=== PATIENT | female | born 1990 | race Caucasian/White ===

== ENCOUNTER 2018-02-08 21:28 | Inpatient (IN) ==
[~2018-02-08 21:28] MED LIST: *HR* Nalbuphine 10 MG/ML AMPUL IVP PRN; Famotidine 20 MG/2 ML VIAL IVP PRN; Metoclopramide 10 MG/2 ML VIAL IVP PRN; Naloxone 0.4 MG/ML INJ IVP PRN; Ondansetron 4 MG/2 ML VIAL IVP PRN
[2018-02-08] MEDS ORDERED: Ringers Solution, Lactated 1,000 ML IVC SCH (21:30)
[2018-02-08] MEDS ORDERED: Penicillin G Potassium 5,000,000 UNIT in 0.9 % Sodium Chloride Mini Bag 100 ML IVPB ONE (21:30)
[2018-02-08 22:02] LABS: Basophils # 0.1 K/mcL (0.0-0.2); Basophils % 0.3 %; Eosinophils # 0.1 K/mcL (0.0-0.6); Eosinophils % 0.7 %; Hematocrit 31.8 % (35.3-44.9); Hemoglobin 10.6 g/dL (11.5-15.4); Immature Granulocytes % 1.2 % (0-4); Mean Corpuscular HGB Conc 33.3 g/dL (31.6-35.5); Mean Corpuscular Hemoglobin 27.2 pg (28.0-33.3); Mean Corpuscular Volume 81.5 fL (83.0-100.0); Mean Platelet Volume 10.7 fL (9.4-12.4); Monocytes # 1.1 K/mcL (0.0-1.3); Monocytes % 6.9 %; Platelet Count 218 K/mcL (140-400); Red Cell Distribution Width 14.8 % (11.5-14.5); Segmented Neutrophils % 78.9 %
[2018-02-08 22:09] LABS: Amphetamine Screen,Urine Negative ng/mL (Cutoff=1000); Barbiturate Screen,Urine Negative ng/mL (Cutoff=200); Benzodiazepines Screen,Urine Negative ng/mL (Cutoff=200); Cannabinoid Screen,Urine Negative ng/mL (Cutoff = 50); Cocaine Screen,Urine Negative ng/mL (Cutoff= 300); Opiate Screen,Urine Negative ng/mL (Cutoff=300); Phencyclidine Screen,Urine Negative ng/mL (Cutoff=25)
--- NOTE | 2018-02-08 22:13 | OB/GYN History & Physical ---
Date of Encounter: 02/08/18 Time of Encounter: 22:01 Assessment and Plan (1) 36 weeks gestation of Current visit: Yes Status: Acute (2) Insufficient care Current visit: Yes Status: Acute No care until seventh month, stated Hospital states only had 3 care visits Qualifiers: Trimester: third trimester Qualified Code(s): O09.33 - Supervision of with insufficient care, third trimester (3) with adoption planned, currently in third trimester Current visit: Yes Status: Acute (4) Positive GBS test Current visit: Yes Status: Acute We will start penicillin per policy (5) Uterine contractions Current visit: Yes Status: Acute Admit to labor and delivery Start penicillin for GBS prophylaxis If patient makes cervical change allow patient to have epidural Obtain records Anticipate (6) Hepatitis C Current visit: Yes Status: Acute Qualifiers: Viral hepatitis chronicity: chronic Hepatic coma status: without hepatic coma Qualified Code(s): B18.2 - Chronic viral hepatitis C History of Present Illness Chief complaint: contractions HPI: Ms. Cloud is a 27 year old female 36+2 weeks gestation cents to labor and delivery triage with complaints of contractions and leaking of fluid. States she lives in [facility] and receives care at [facility] with Dr. Ho. Patient admits late care and seventh month of , history of drug use 2 years ago, patient states not current , patient is putting baby up for adoption, recent test shows positive BV untreated, patient states normal ultrasound. Labs: Most labs not done, contact with [facility] to the hospital did say positive GBS and hepatitis C Past Med Surg Social Fam HX - Past Medical History Medical history: no medical history Psychiatric history: no psych history - Past Surgical History Surgical History: no surgical history - Social History Smoking Status: Never smoker Alcohol use: none Drug use: none Obstetrical History - Pregnancies : 2 Para: 1 Term: 1 : 0 Ab's: 0 Livin Medications and Allergies Vit/Iron Fumarate/FA [ Tablet] 1 each PO DAILY 02/08/18 [ History] metroNIDAZOLE [Flagyl] 500 mg PO BID 02/08/18 [History] 3 Allergy/AdvReac Type Severity Reaction Status Date / Time No Known Allergies Allergy Verified 02/08/18 21:21 Exam - Constitutional Constitutional: well developed, well nourished, no acute distress, average body habitus - Neck Neck exam: full ROM - Lungs Respiratory exam: CTAB - Cardiovascular Cardiovascular exam: RRR - Abdomen Abdomen: Present: gravid, non tender - Extremities Extremities exam: normal capillary refill, normal inspection - Vagina Vagina: Absent: normal moisture (copious yellow discharge. negative ferning ) - Cervix Dilation: 5 Effacement: 80 Station: -2 - Uterus Uterus exam: Present: normal size, normal contour Results Result Diagrams: 02/08/18 21:30 All other labs normal. - VTE Reasons for not Prescribing Prophylaxis: Treatment not Indicated - Low risk for VTE
[2018-02-08] MEDS ORDERED: *HR* FentaNYL (PF) 100 MCG/2 ML VIAL EP ONE (22:47)
[2018-02-08] MEDS ORDERED: Bupivacaine-MPF 0.25% 10 ML VIAL EP ONE (22:47)
[2018-02-08] MEDS ORDERED: *HR* FentaNYL (PF) 100 MCG/2 ML VIAL ONE (22:48)
[2018-02-08] MEDS ORDERED: Bupivacaine-MPF 0.25% 10 ML VIAL ONE (22:48)
[2018-02-08 22:49] LABS: HIV-1&2 Antibody & p24 Ag Nonreactive (Nonreactive); Hepatitis B Surface Antigen Nonreactive (Nonreactive)
[2018-02-08] MEDS ORDERED: Oxytocin 20 units/ LR 1000 mL 20 UNIT/1,000 ML BAG IVC ONE (22:52)
[2018-02-08] MEDS ORDERED: Epidural Premix (fent/bupiv) 0 ML EP ONE (22:53)
[2018-02-08] MEDS ORDERED: Epidural Premix (fent/bupiv) 110 ML EP SCH (23:00)
--- NOTE | 2018-02-08 23:20 | Anesthesia Evaluation PreOp ---
Date of Encounter: 02/08/18 Time of Encounter: 23:18 - Past History Planned Operation: [facility] Cardiac History: Denies any Significant Hx Pulmonary History: Denies Any Significant HX [employer] FINAL INSPECTOR History: Denies Any Significant HX Other Medical History: Denies Any Significant HX Anesthesia History: No Prior Anesthetic Complications (has never had any procedure requiring GA or NA; denies family h/o GA complications) : Yes Test: Positive Alcohol Use: none Drug use: none Medications and Allergies Vit/Iron Fumarate/FA [ Tablet] 1 each PO DAILY 02/08/18 [ History] metroNIDAZOLE [Flagyl] 500 mg PO BID 02/08/18 [History] 3 Allergy/AdvReac Type Severity Reaction Status Date / Time No Known Allergies Allergy Verified 02/08/18 21:21 - Meds/Allergy Pre-op Review Medications Reviewed: Yes Allergies Reviewed: Yes Beta Blockers on Current Med List: No Anesthesia Results - Labs 02/08/18 21:30 Anesthesia Exam 118/61, HR 88, RR 24 O2 Sat Height 1.7 m Weight 82.4 kg NPO (# of Hours): solids >6hrs Pain Scale: 10 Pain Scale Used: Farnsworth-Drew (Faces) - HEENT Pupil (Motor): Pupils equal Mallampati: II Oral Opening: Greater than 3 - [employer]OR[employer] FINAL INSPECTOR LOC: Oriented, Uncooperative [employer] FINAL INSPECTOR Motor: Normal RUE, Normal LUE, Normal RLE, Normal LLE, Normal Face [employer] FINAL INSPECTOR Sensory: Normal: RUE, LUE, RLE, LLE, Face - Cardiac Rhythm: Regular Murmur: None - Pulmonary Breath Sounds: bilateral Clear Respiratory Effort: Symmetrical Anesthesia Assess/Plan ASA Score: 2 Modified Linda Scale for Level of Consciousness: Anixous, agitated or restless Anesthetic Plan: Regional Autologous Blood: No Monitoring Plan: Standard Monitors Recovery Plan: Other
--- NOTE | 2018-02-08 23:23 | Anesthesia Progress Note ---
Date of Encounter: 02/08/18 Time of Encounter: 23:21 Anesthesia Note - Note Note: Attempted epidural catheter placement on patient using interspace L3/4. After a few unsuccessful attempts at this level due to poor patient positioning, decision made to attempt at different vertebral interspace. At this point, patient stated she no longer wanted an epidural. Explained to patient that once sterility is broken, that there will be no additional epidural attempts. Patient verbalize understanding and is adamant she no longer wants an epidural. 02/08/18 23:21
[2018-02-09] MEDS ORDERED: Penicillin G Potassium 2,500,000 UNIT in 0.9 % Sodium Chloride 100 ML IVPB SCH (01:00)
[2018-02-09] MEDS ORDERED: metroNIDAZOLE 500 MG TABLET PO ONE (02:37)
--- NOTE | 2018-02-09 02:39 | Event Note ---
Date of Encounter: 02/09/18 Time of Encounter: 02:38 + trich in records, it does not appear pt was treated. Will give 2000mg flagyl po x1 dose,
--- NOTE | 2018-02-09 02:54 | OB/GYN Procedure Note ---
Delivery - Delivery Date: 02/09/18 Provider: Nelda Lechuga Intrapartum events: meconium Delivery induction: none Delivery augmentation: rupture of membranes Delivery monitor: external FHT, external uterine Anesthesia: none Estimated Blood Loss: 200 - Repair Episiotomy: none Laceration Description: Periurethral - Complications Delivery complications: none Delivery comments: 27 y/o now initially receiving care from [place], [place] presented in labor and delivered a viable male infant @ 020hrs. Weight 7lbs, APGARS 7/8. Infant delivered GLORIA, Placenta delivered @ 0211. Right labial laceration and clitoral laceration repaired with 4-0 vicryl, EBL 200ml. Mother and stable.
[2018-02-09] MEDS ORDERED: Lanolin 7 G OINT...G. TP PRN (03:54)
[2018-02-09] MEDS ORDERED: Measles/Mumps/Rubella Vacc 0.5 ML VIAL SQ PRN (03:54)
[2018-02-09] MEDS ORDERED: Acetaminophen 325 MG TABLET PO PRN (03:54)
[2018-02-09] MEDS ORDERED: Benzocaine/Menthol 56 GM AEROSOL SPRAY TP PRN (03:54)
[2018-02-09] MEDS ORDERED: Oxytocin 20 units/ LR 1000 mL 20 UNIT/1,000 ML BAG IVC SCH (03:54)
[2018-02-09] MEDS: Ibuprofen 600 MG TABLET PO PRN ×2 (04:19→06:45)
[2018-02-09 08:23] VITALS: BP 132/62
[2018-02-09 08:44] LABS: Rubella IgG Antibody POSITIVE (POSITIVE); Varicella Zoster IgG Antibody Positive
[2018-02-09] MEDS ORDERED: Prenatal Vit/FA 1 EACH TABLET PO SCH (09:00)
--- NOTE | 2018-02-09 13:30 | OB/GYN Progress Note ---
Date of Encounter: 02/09/18 Time of Encounter: 13:28 - Assessment and Plan (1) Vaginal delivery Current Visit: Yes Status: Acute Patient left this morning without telling any staff that she was leaving. She was not seen by a provider prior to discharge. She was not given prescriptions or a copy of discharge teaching. Objective - Vital Signs Vital Signs: Vital Signs Temp Pulse Resp BP Pulse Ox 02/09/18 08:15 98.2 F 64 16 132/62 99 02/09/18 06:45 97.7 F 69 16 128/66 98 02/09/18 05:40 98.1 F 87 16 113/61 99 02/09/18 04:45 98.5 F 81 16 115/71 98 Intake and Output 02/08/18 02/09/18 02/09/18 23:59 07:59 15:59 Intake Total 600 / 600 Balance 600 / 600 Intake: Oral 600 / 600 Other: Meal Breakfast Percent of Meal Consumed 100% Weight 82.4 kg 78.5 kg Patient Weight 02/09/18 23:59 Weight 78.5 kg - Labs Labs: Abnormal lab results WBC 16.5 K/mcL (4.3-11.1) H 02/08/18 21:30 Hgb 10.6 g/dL (11.5-15.4) L 02/08/18 21:30 Hct 31.8 % (35.3-44.9) L 02/08/18 21:30 MCV 81.5 fL (83.0-100.0) L 02/08/18 21:30 MCH 27.2 pg (28.0-33.3) L 02/08/18 21:30 RDW 14.8 % (11.5-14.5) H 02/08/18 21:30 Neutrophils # 13.0 K/mcL (1.6-8.9) H 02/08/18 21:30
== END 2018-02-09 10:40 | disposition left against medical advice (07) | DRG 560 ==
LOC: 1NENULAB → 1NENUOBS 02-09 04:31
PROVIDERS: ADMIT Advanced Practice Midwife; ATTEND Advanced Practice Midwife